=== PATIENT | male | born 1930 | race Caucasian/White ===

== ENCOUNTER → 2016-10-17 | Outpatient (CLI) | payer MEDICARE ==
[~2016-10-17] MED LIST: ASPI-1035 PO; LOSA100T14 PO; NEBI5TAB3 PO; TAMS-11 PO
== END | disposition home or self-care (01) ==
LOC: LAB 07:47
PROVIDERS: ATTEND Surgery
DX: D17.79 Benign lipomatous neoplasm of other sites (principal)
CPT/HCPCS: 88305

== ENCOUNTER → 2016-11-08 | Day surgery (SDC) | payer MEDICARE ==
[~2016-11-08] VITALS: Ht 175.3 cm; Wt 86.2 kg
[~2016-11-08] MED LIST changes: +AMLO5TAB4 PO; +BUPIVACAINE HCL 0.5% (5MG/ML) 50ML ONE; +CEFAZOLIN SODIUM 1000MG/VIAL ONE; +CLOP75TA2 PO; +DEXAMETHASONE 4MG/ML 1ML VIAL ONE; +FENTANYL CITRATE/PF 50MCG/ML 2ML VIAL ONE; +HYDROMORPHONE HCL/PF 2MG/ML CPJ IV PRN; +LABETALOL HCL 20MG/4ML CARPUJECT IV PRN; +LIDOCAINE HCL 1% 20ML VIAL (Pyxis) INJ ONE; +MEPERIDINE HCL/PF 25MG/ML CPJ IV PRN; +MIDAZOLAM HCL 2 MG/2 ML VIAL ONE; +ONDANSETRON HCL 4MG/2ML VIAL IV PRN; +ONDANSETRON HCL 4MG/2ML VIAL ONE; +PROPOFOL 200MG/20ML VIAL IV ONE; +SODIUM CHLORIDE 0.9% 1,000 ML IV SCH; +SODIUM CHLORIDE 0.9% 10ML VIAL ONE
== END | disposition home or self-care (01) ==
LOC: OR 06:03
PROVIDERS: ATTEND Surgery
DX: C43.59 Malignant melanoma of other part of trunk (principal); C77.3 Secondary and unspecified malignant neoplasm of axilla and upper limb lymph nodes
CPT/HCPCS: 11606; 38525; 88305; 88307; A4216; J0690; J1100; J2250; J2405; J3010; J3490; J7030; J2704

== ENCOUNTER → 2019-06-07 | Day surgery (SDC) | payer MEDICARE ==
[~2019-06-07] MED LIST changes: -ASPI-1035 PO; +ASPI-1393 PO; -BUPIVACAINE HCL 0.5% (5MG/ML) 50ML ONE; -CEFAZOLIN SODIUM 1000MG/VIAL ONE; -CLOP75TA2 PO; +CLOP75TA4 PO; -DEXAMETHASONE 4MG/ML 1ML VIAL ONE; -FENTANYL CITRATE/PF 50MCG/ML 2ML VIAL ONE; -HYDROMORPHONE HCL/PF 2MG/ML CPJ IV PRN; -LABETALOL HCL 20MG/4ML CARPUJECT IV PRN; -LOSA100T14 PO; +LOSA100T32 PO; -MEPERIDINE HCL/PF 25MG/ML CPJ IV PRN; -MIDAZOLAM HCL 2 MG/2 ML VIAL ONE; -ONDANSETRON HCL 4MG/2ML VIAL IV PRN; -ONDANSETRON HCL 4MG/2ML VIAL ONE; -PROPOFOL 200MG/20ML VIAL IV ONE; +SODIUM BICARBONATE 4% (2.4MEQ) 5ML VIAL IV ONE; -SODIUM CHLORIDE 0.9% 1,000 ML IV SCH; -SODIUM CHLORIDE 0.9% 10ML VIAL ONE
== END | disposition home or self-care (01) ==
LOC: RAD 09:29
PROVIDERS: ATTEND Surgery
DX: C77.3 Secondary and unspecified malignant neoplasm of axilla and upper limb lymph nodes (principal); Z79.82 Long term (current) use of aspirin; Z79.899 Other long term (current) drug therapy
CPT/HCPCS: 38505; 76942; 88305; J3490